=== PATIENT | male | born 1965 | race Caucasian/White ===

== ENCOUNTER 2022-04-12 08:53 | Outpatient (CLI) | payer OTHER, SELFPAY ==
[2022-04-12 14:58] LABS: Hemoglobin A1C* 8.74 % (0-5.6)
[2022-04-12 14:59] LABS: Albumin* 4.6 g/dL (3.3-5.0); Chloride* 102 mmol/L (96-114); Sodium* 138 mmol/L (135-149)
[2022-04-12 15:01] LABS: Bilirubin Total* 0.6 mg/dL (0.1-1.5); Carbon Dioxide* 25 mmol/L (20-32); Cholesterol* 156 mg/dL (90-199); Creatinine* 0.9 mg/dL (0.5-1.5); Estimated Glomerular Filt Rate 100 ml/min; Total Protein* 7.1 g/dL (6.0-8.3)
[2022-04-12 15:02] LABS: Alanine Aminotransferase* 30 U/L (4-50); Alkaline Phosphatase* 76 U/L (40-150); Aspartate Amino Transferase* 24 U/L (12-35); Blood Urea Nitrogen* 16 mg/dL (7-30); Calcium* 9.4 mg/dL (8.4-10.6); Glucose* 171 mg/dL (60-115); HDL Cholesterol* 37 mg/dL (>=40); LDL Cholesterol Calculated 85 mg/dL (<100); Triglycerides* 172 mg/dL (40-149)
[2022-04-12 15:13] LABS: Creatinine Urine 185.5 mg/dL
[2022-04-12 17:09] LABS: Microalbumin Creatinine Ratio 40 mg/g (0-30); Microalbumin Urine 8 mg/dL
== END 2022-04-12 08:54 | disposition home or self-care (01) ==
PROVIDERS: PCP Nurse Practitioner Family; Visit Provider Nurse Practitioner Family
DX: E11.9 Type 2 diabetes mellitus without complications (principal); E78.5 Hyperlipidemia, unspecified; E66.9 Obesity, unspecified; I10 Essential (primary) hypertension
CPT/HCPCS: 80053; 80061; 82043; 82570; 83036

== ENCOUNTER 2023-02-19 08:41 | Outpatient (CLI) | payer BC, SELFPAY | END 2023-02-19 08:42 | disposition home or self-care (01) | PROVIDERS: PCP Nurse Practitioner Family; Visit Provider Nurse Practitioner Family | DX: E66.9 Obesity, unspecified (principal); I10 Essential (primary) hypertension; E11.9 Type 2 diabetes mellitus without complications; E78.5 Hyperlipidemia, unspecified; Z12.5 Encounter for screening for malignant neoplasm of prostate | CPT/HCPCS: 80053; 80061; 82043; 82570; 84153; 84443 ==

== ENCOUNTER 2023-04-05 12:03 | Outpatient (CLI) | payer BC, SELFPAY | END 2023-04-05 12:04 | disposition home or self-care (01) | PROVIDERS: PCP Nurse Practitioner Family; Visit Provider Nurse Practitioner Family | DX: E11.9 Type 2 diabetes mellitus without complications (principal); R35.0 Frequency of micturition | CPT/HCPCS: 80048; 81015; 85025; 87086 ==

== ENCOUNTER 2023-04-16 12:45 | Outpatient (CLI) | payer BC, SELFPAY ==
--- NOTE | 2023-04-16 13:00 | CRLHL7_ITS ---
For Patients: As a result of the Century Cures Act, medical imaging exams and procedure reports are released immediately into your electronic medical record. You may view this report before your referring provider. If you have questions, please contact your health care provider. Indication: BILATERAL FLANK PAIN, MICROCYTIC HEMATURIA Technique: CT Abdomen/Pelvis WITHOUT Please note that all CT scans at this facility use dose modulation, iterative reconstruction, and/or weight-based dosing when appropriate to reduce radiation dose to as low as reasonably achievable. Comparison: None Findings: 6.3 millimeter nodule left lower lobe. No pleural effusion. No free intraperitoneal air. Noncontrast enhanced liver is unremarkable. The gallbladder is incompletely distended. No biliary duct dilation. Normal spleen and pancreas. Normal adrenal glands. The bladder is normal. Normal left ureter. Left kidney normal. Also normal right kidney and right ureter. No bowel obstruction. No inflammatory changes. Appendix is normal. No adenopathy. Atherosclerotic disease. Degenerative disc disease and facet degeneration. No vertebral body compression fracture. Impression: No renal, ureteral or bladder stone. Left lower lobe pulmonary nodule measuring 6.[address] chest recommended 1 year. Please note that all CT scans at this facility use dose modulation, iterative reconstruction, and/or weight-based dosing when appropriate to reduce radiation dose to as low as reasonably achievable. Dictated by Jonathon Mckinley MD @ 04/17/2023 11:37:14 AM (Electronically Signed)
== END 2023-04-16 12:46 | disposition home or self-care (01) ==
PROVIDERS: PCP Nurse Practitioner Family; Visit Provider Nurse Practitioner Family
DX: R10.9 Unspecified abdominal pain (principal); R31.9 Hematuria, unspecified; R91.1 Solitary pulmonary nodule
CPT/HCPCS: 74176

== ENCOUNTER 2023-12-24 08:10 | Outpatient (CLI) | payer OTHER, SELFPAY ==
--- OUTSIDE RECORDS SUMMARY | 2023-12-28 09:24 | XMS_ITS ---
Author Organization [facility] Address [address] [place] [address] Care Team Providers Care Siding Coreboard Inspector Name Role Phone Unavailable Unavailable Unavailable Surgery Details Not on file Complications Check Surgery Details section. Procedure Estimated Blood Loss Check Surgery Details section. Procedure Findings Check Surgery Details section. Procedure Specimens Taken Check Surgery Details section.
--- OUTSIDE RECORDS SUMMARY | 2023-12-28 09:24 | XMS_ITS | Referral Summary ---
Author Organization [facility] Address [address] [place] [address] Care Team Providers Care Motor Vehicle Or Caravan Salesperson Name Role Phone Elsewhere, Pcp Primary Care Provider Unavailabl e Source Comments Patient records contain information from all sites at [facility]. For routine questions regarding patient records, call [phone] during business hours, M-F 8:00 AM - 5:00 PM Central Time. Record requests for emergency care only can be directed to [phone] at any time.[facility] Encounters Date Type Department Care Team Description 11/19/2023 Clinical Communication Department of Orthopedic Surgery in [address] [phone] Vadim Redmond M.D. Surgical Listing 11/19/2023 1:03 PM CDT - 11/19/2023 11:59 PM CDT Hospital Encounter Department of Radiology in [address] [phone] Giovanna Molina APRN, C.N.P., D.N.P. Pain Shoulder Right Discharge Disposition: Home or Self Care 11/19/2023 1:03 PM CDT - 11/19/2023 11:59 PM CDT Hospital Encounter Department of Radiology in [address] [phone] Giovanna Molina APRN, C.N.P., D.N.P. Pain Knee Left Discharge Disposition: Home or Self Care 11/19/2023 1:00 PM CDT Comprehensive Visit Department of Orthopedic Surgery in [address] [place] [phone] Giovanna Molina APRN, C.N.P., D.N.P. Pain Knee Left (Primary Dx); Pain Shoulder Right Discharge Disposition: Home or Self Care from Last 3 Months Allergies No known active allergies Medications Medication Sig Dispensed Refills Start Date End Date Status multivitamin capsule Take by mouth daily. 05/28/2013 Active amLODIPine (NORVASC) 10 mg tablet Take ONE a day for blood pressure 04/09/2020 Active aspirin 81 mg chewable tablet Chew 1 tablet. Active atorvastatin (LIPITOR) 10 mg tablet Take 10 mg by mouth. 04/09/2020 Active hydroCHLOROthiazide (HYDRODIURIL) 25 mg tablet Take 25 mg by mouth. 04/09/2020 Active metFORMIN (GLUCOPHAGE) 1,000 mg tablet Take 1,000 mg by mouth 2 (two) times a day. 10/03/2020 Active losartan (COZAAR) 100 mg tablet Take 1 tablet by mouth daily. 04/17/2021 Active chlorthalidone (HYGROTON) 25 mg tablet 05/19/2021 Active Dexcom G6 Prefitter Doors See Admin Instructions. 02/20/2023 Active Dexcom G6 Sensor device See Admin Instructions. 05/01/2023 Active Dexcom G6 Transmitter device See Admin Instructions. 02/20/2023 Active insulin aspart U-100 (NovoLOG FlexPen) 100 unit/mL (3 mL) injection Inject 12 Units under the skin 3 (three) times a day with meals. 05/02/2023 Active Lantus Solostar U-100 Insulin 100 unit/mL (3 mL) injection Inject under the skin at bedtime. 04/18/2023 Active blood sugar diagnostic strips by other route as needed. 04/13/2022 Active UNABLE TO FIND by other route. Blood-Glucose Meter (Accu-Chek Staci Plus Meter) [facility] 04/13/2022 Active UNABLE TO FIND by other route. Needle (Disp) 23 Gauge (Bd Regular Bevel Spurger) 23 gauge x 3/4 needle 04/05/2023 Active semaglutide (OZEMPIC) 1 mg/dose (4 mg/3 mL) injectionIndications:D iabetes Mellitus Type 2 Without Complication (HCC) Inject 1 mg under the skin every 7 (seven) days. 3 mL 11 09/02/2023 Active semaglutide (Ozempic) 0.25 mg or 0.5 mg (2 mg/3 mL) injectionIndications:D iabetes Mellitus Type 2 Without Complication (HCC) Inject 0.25 mg under the skin every 7 (seven) days for 30 days, THEN 0.5 mg every 7 (seven) days. 3 mL 3 09/02/2023 Active Active Problems Problem Noted Date Diagnosed Date Primary Osteoarthritis Knee Left 11/19/2023 Pain Shoulder Right 11/19/2023 Morbid Obesity Body Mass Ind ex Greater Than Or Equal To 40 Adult 07/12/2015 Overview (09/04/2016): Morbid Obesity Body Mass Index (BMI) >40 Adult Hypertension 05/28/2013 Overview (09/04/2016): Hypertension Essential (401.9) Immunizations Name Administration Dates Next Due Tdap 07/28/2014,09/25/2005 Social History Tobacco Use Types Packs/Day Years Used Date Smoking Tobacco: Never Passive Smoke Exposure: Never Smokeless Tobacco: Never Tobacco Cessation:Counseling Given: Not Answered [facility] [employer] Answer Date Recorded In the past 12 months has th e Advisor Client Match, gas, oil, or water [facility] threatened to shut off services in your home? No 11/15/2023 Exercise Vital Sign Answer Date Recorde d On average, how many days pe r week do you engage in moderate to strenuous exercise (like a brisk walk)? 1 day 11/15/2023 On average, how many minutes do you engage in exercise at this level? 20 min 11/15/2023 Hunger Vital Sign Answer Date Recorded Within the past 12 months, y ou worried that your food would run out before you got the money to buy more. Never true 11/15/19 24 Within the past 12 months, t he food you bought just didn't last and you didn't have money to get more. Never true 11/15/2023 PRAPARE - Transportation Answer Date Re corded In the past 12 months, has l ack of transportation kept you from medical appointments or from getting medications? No 05/2023 In the past 12 months, has l ack of transportation kept you from meetings, work, or from getting things needed for daily living? No 11/15/2023 Nutrition Answer Date Recorded On average, how many serving s of fruits and vegetables do you eat per day (serving size is equal to 1 cup or approximately the size of a tennis ball)? 3-5 11/15/2023 Dental Answer Date Recorded Dental: Regular Dentist Yes 11/15/19 Employment Answer Date Recorded Employment status Employed and actively working without restrictions 11/15/2023 Housing Stability Answer Date Recorded What is your living situation today? I have a [facility] place to live 11/15/2023 Sex and Gender Information Value Date Recorded Sex Assigned at Male 11/15/2023 10:21 AM CDT Gender Identity Male 11/15/2023 10:21 AM CDT Sexual Orientation Straight 11/15/2023 10 :21 AM CDT Last Filed Vital Signs Vital Sign Reading Time Taken Comments Blood Pressure 144/81 05/13/2023 1:22 PM [employer] Pulse 73 05/13/2023 1:22 PM [employer] Temperature - - Respiratory Rate 20 06/29/2021 9:43 AM CDT Oxygen Saturation 94% 06/29/2021 1:45 PM CDT Inhaled Oxygen Concentration - - Weight 118 kg (259 lb 4.2 oz) 05/13/2023 1:22 PM [employer] Height 176.4 cm (5' 9.45) 05/14/2023 10:55 AM [facility] Body Mass Index 37.79 05/13/2023 1:22 PM [employer] Plan of Treatment Upcoming Encounters Date Type Department Care Team (Late st Contact Info) Description 04/29/2024 Hospital Encounter Outpatient Procedure Center in [address] [phone] Vadim Redmond M.D. [address] [place] [phone] 05/04/2024 4:00 PM [employer] Comprehensive Visit Department of Rehabilitation Services in [address] [phone] Giovanna Molina APRN, C.N.P., D.N.P. [address] [place] [phone] Jolly Henriquez P.T. [phone] [place] [phone] 06/10/2024 Hospital Encounter Outpatient Procedure Center in [place], [place] [address] [place] [phone] Vadim Redmond M.D. [address] [place] [phone] Scheduled Procedures Name Priority Associated Diagnoses Date/Ti me ROBOTIC-ASSISTED KNEE TOTAL ARTHROPLASTY Primary Osteoarthritis Knee Left ARTHROPLASTY TOTAL REVERSE SHOULDER Pain Shoulder Right Procedures Procedure Name Priority Date/Time Associated Diagnosis Comments DX KNEE LEFT 3 VIEWS RAD - Routine (most inpatients and all outpatients) 11/19/2023 1:24 PM CDT Pain Knee Left DX SHOULDER RIGHT 2+ VIEWS RAD - Routine (most inpatients and all outpatients) 11/19/2023 1:23 PM CDT Pain Shoulder Right HI ARTHCS ASP/INJ MJR JT WO US Routine 11/19/2023 1:00 PM CDT Pain Shoulder Right BASIC METABOLIC PANEL, S/P STAT 06/29/2021 10:00 AM CDT LIPID PANEL, S Routine 08/02/2015 8:33 AM CDT from Last 3 Months or Most Recently Relevant to Health Maintenance Results * DX Knee Left 3 Views (11/19/2023 1:24 PM CDT) Anatomical Region Laterality Modality Lower Extremity, Knee, Muscu loskeletal RST LOS, Musculoskeletal ARZ LOS, Muskuloskeletal FLA LOS Left Digit al Radiography Impressions 11/19/2023 2:11 PM CDT Comparison 02/23/2021. Progressed severe medial compartment predominant tricompartmental left knee osteoarthritis. Small left knee joint effusion. Alignment normal. No acute fracture. Narrative 11/19/2023 2:11 PM CDT EXAM: DX KNEE LEFT 3 VIEWS Procedure Note Neftali Martin M.D. - 11/19/2023 EXAM: DX KNEE LEFT 3 VIEWS IMPRESSION: Comparison 02/23/2021. Progressed severe medial compartment predominant tricompartmental leftknee osteoarthritis. Small left knee joint effusion. Alignment normal. Noacute fracture. Giovanna Molina APRN, C.N.P., D.N.P. [facility] PROCED[facility] * DX Shoulder Right 2+ Views (11/19/2023 1:23 PM CDT) Anatomical Region Laterality Modality Upper Extremity, Shoulder, M usculoskeletal RST LOS, Musculoskeletal ARZ LOS, Muskuloskeletal FLA LOS Right Digit al Radiography Impressions 11/19/2023 2:11 PM CDT No acute osseous abnormality. High riding humeral head suggests chronic rotator cuff insufficiency. Moderate acromioclavicular and glenohumeral degenerative change. Narrative 11/19/2023 2:11 PM CDT EXAM: DX SHOULDER RIGHT 2+ VIEWS Procedure Note Mariano Harris M.D. - 11/19/2023 EXAM: DX SHOULDER RIGHT 2+ VIEWS IMPRESSION: No acute osseous abnormality. High riding humeral head suggests chronicrotator cuff insufficiency. Moderate acromioclavicular and glenohumeraldegenerative change. Giovanna Molina APRN, C.N.P., D.N.P. [facility] PROCED[facility] * HI ARTHCS ASP/INJ MJR JT WO US (11/19/2023 1:00 PM CDT) Narrative MMODAL - 11/19/2023 1:00 PM CDT Giovanna Molina APRN, C.N.P., D.N.P. ? 11/19/2023 ??2:41 PM Shoulder site - R glenohumeral : injection only Performed by: Giovanna Molina APRN, C.N.P., DyanN.P. Authorized by: Giovanna Molina APRN, C.N.Samuel, De.N.P. ?? PROCEDURE DETAILS Indications: right shoulder pain Procedure Location shoulder Shoulder site: R glenohumeral Site prep: patient was prepped and draped in usual sterile fashion ?? Patient position: seated Procedural approach: posterior Procedure performed: injection only Needle gauge: 22 G, length: 2 in Procedural Medication The following medications were administered at the target site(s) Local anesthetic: 5 mL lidocaine 10 mg/mL (1 %); 3 mL lidocaine 10 mg/mL (1 %) Corticosteroid: 40 mg triamcinolone acetonide 40 mg/mL CONSENT Consent obtained: written (Risks, benefits and alternatives were discussed and a written Informed Consent was obtained. Please see Informed Consent form for further details.) PRE-PROCEDURE DETAILS Procedure purpose: therapeutic and diagnostic Indications: right shoulder pain Site preparation: povidone-iodine SEDATION / ANESTHESIA Anesthesia method: none POST-PROCEDURE DETAILS Procedure completed successfully: yes Complications: no apparent complications ?? Post-procedure instructions: avoid strenuous activity for 5 days Discharge instructions: dressing care and follow-up with ordering provider Ernie Ramsey APRN.N.Samuel, De.N.P. PROCEDU RE/MINOR SURGICAL ORDERABLES MMODAL NA * (ABNORMAL) Basic Metabolic Panel (06/29/2021 10:00 AM CDT) Potassium, P 3.9 3.6 - 5.2 mmol/L 06/29/2021 10:25 AM CDT [facility] Sodium, P 136 135 - 145 mmol/L 06/29/2021 10:25 AM CDT [facility] Chloride, P 101 98 - 107 mmol/L 06/29/2021 10:25 AM CDT [facility] Bicarbonate, P 22 22 - 29 mmol/L 06/29/2021 10:25 AM CDT [facility] Anion Gap, P 13 7 - 15 06/29/2021 10:25 AM CDT [facility] BUN (Blood Urea Nitrogen), P 14 8 - 24 mg/dL 06/29/2021 10:25 AM CDT [facility] Creatinine 0.81 0.74 - 1.35 mg/dL 06/29/2021 10:25 AM CDT CNFL eGFR-Black/Afri can British >90 >=60 mL/min/BSA 06/29/2021 10:25 AM CDT [facility] Comment: ----ADDITIONAL INFORMATION---- Estimated GFR calculated using the 2009 CKD_EPI creatinine equation. eGFR Non-Black/Afric an British >90 >=60 mL/min/BSA 06/29/2021 10:25 AM CDT [facility] Comment: ----ADDITIONAL INFORMATION---- Estimated GFR calculated using the 2009 CKD_EPI creatinine equation. Calcium, Total, P 9.8 8.6 - 10.0 mg/dL 06/29/2021 10:25 AM CDT [facility] Glucose, P 169(H) 70 - 140 mg/dL 06/29/2021 10:25 AM CDT [facility] Blood (Blood, Venous) 06/29/2021 10:00 AM CDT 06/29/2021 10:02 AM CDT Lily Magallanes APRNNVasquez LAB BLO OD ADD-ON [facility] [address] [place] [address], [place] [address] * (ABNORMAL) Lipid Panel (08/02/2015 8:33 AM CDT) Cholesterol, Total 209(H) <=199 MGDL POWERCHART Comment: 2014 National Lipid Association recommendations for Total Cholesterol in adults ages 18 and up: Desirable <200 mg/dL Borderline high 200-239 mg/dL High 240 mg/dL 2014 National Lipid Association recommendations for Total Cholesterol in children ages 2 to 17. Acceptable <170 mg/dL Borderline High 170-199 mg/dL High 200 mg/dL HX HDL 33(L) >=40 MGDL POWERCHART Comment: 2014 National Lipid Association recommendations for HDL-C in adults ages 18 and up: Low <40 mg/dL (Men) Low <50 mg/dL (Women) 2014 National Lipid Association recommendations for HDL-C in children ages 2 to 17. Low <40 mg/dL Borderline Low 40-45 mg/dL Acceptable >45 mg/dL Triglycerides 293(H) <=149 MGDL POWERCHART Comment: 2014 National Lipid Association recommendations for Triglycerides in adults ages 18 and up: Normal <150 mg/dL Borderline High 150-199 mg/dL High 200-499 mg/dL Very High 500 mg/dL 2014 National Lipid Association recommendations for Triglycerides in children ages 2 to 9. Acceptable <75 mg/dL Borderline High 75-99 mg/dL High 100 mg/dL 2014 National Lipid Association recommendations for Triglycerides in children ages 10 to 17. Acceptable <90 mg/dL Borderline High 90-129 mg/dL High 130 mg/dL Trigs >400mg/dL: Triglycerides >400 mg/dL. Calculated LDL cholesterol is not valid. Non-HDL cholesterol may be used for risk assessment when triglycerides are >400mg/dL. Calculated LDL 117 <=129 MGDL POWERCHART Comment: 2014 National Lipid Association recommendations for LDL-C in adults ages 18 and up: Desirable <100 mg/dL Above desirable 100-129 mg/dL Borderline high 130-159 mg/dL High 160-189 mg/dL Very High 190 mg/dL 2014 National Lipid Association recommendations for LDL-C in children ages 2 to 17. Acceptable <110 mg/dL Borderline High 110-129mg/dL High 130 mg/dL LDL-C >190mg/dL: The markedly elevated LDL level is suggestive of a genetic condition such as familial hypercholesterolemia(FH) or familial defective apolipoprotein B-100 (FDB). Molecular genetic testing for FH and FDB is available through [facility]: FH/ADH Genetic Reflex Panel (test ADHP). Acquired (non-genetic) causes of markedly increased LDL cholesterol include cholestatic liver disease due to the presence of LpX. If a genetic form of hypercholesterolemia is suspected, family studies including biochemical testing for lipids (total cholesterol,triglycerides, LDL cholesterol and HDL cholesterol) are recommended. ??Please contact the laboratory at or the on-line test catalog at [employer] for information about how to order these tests or to speak with a genetic counselor. Further interpretation would require clinical information. Total Cholesterol/HDL Ratio 6 POWERCHART Blood 08/02/2015 8:33 AM CDT Miguel A Flores M.D. LAB BLOOD ADD-ON POWERCHART from Last 3 Months or Most Recently Relevant to Health Maintenance Care Teams Motor Vehicle Or Caravan Salesperson Relationship Specialty Start Date End Date Elsewhere, Pcp PCP - General 10/13/18
--- OUTSIDE RECORDS SUMMARY | 2023-12-28 09:24 | XMS_ITS | Clinical Summary ---
Author Organization [facility] Address [address] [place] [address] Care Team Providers Care Reinforcing Steel Erector Name Role Phone Elsewhere, Pcp Primary Care Provider Unavailabl e Source Comments Patient records contain information from all sites at [facility]. For routine questions regarding patient records, call [phone] during business hours, M-F 8:00 AM - 5:00 PM Central Time. Record requests for emergency care only can be directed to [phone] at any time.[facility] Allergies No known active allergies Medications Medication [...] 25 mg tablet 05/19/2021 Active Dexcom G6 [employer] Finance Manager See Admin Instructions. 02/20/2023 Active Dexcom G6 [...] route. Blood-Glucose Meter (Accu-Chek Staci Plus Meter) mis 04/13/2022 Active UNABLE TO FIND by other route. Needle (Disp) 23 Gauge (Bd Regular Bevel [place]) 23 gauge x 3/4 needle 04/05/2023 Active [...] Hypertension 05/28/2013 Overview (09/04/2016): Hypertension Essential (401.9) Encounters Date Type Department Care Team Description 11/19/2023 1:03 PM CDT - 11/19/2023 11:59 PM CDT Hospital Encounter Department of Radiology in [address] [phone] Giovanna Molina APRN, C.N.P., D.N.P. Pain Shoulder Right Discharge Disposition: Home or Self Care 11/19/2023 1:03 PM CDT - 11/19/2023 11:59 PM CDT Hospital Encounter Department of Radiology in [address] [phone] Giovanna Molina APRN, C.N.PJuan C, D.N.P. Pain Knee Left Discharge Disposition: Home or Self Care 11/19/2023 1:00 PM CDT Comprehensive Visit Department of Orthopedic Surgery in [address] [phone] Giovanna Molina APRN, C.N.Tita., D.N.P. Pain Knee Left (Primary Dx); Pain Shoulder Right Discharge Disposition: Home or Self Care 11/19/2023 Clinical Communication Department of Orthopedic Surgery in [address] [phone] Vadim Redmond M.D. Surgical Listing from Last 3 Months Immunizations Name Administration Dates Next Due Tdap 07/28/2014,09/25/2005 Family History Medical History Relation Name Comments Coronary artery disease Father Diabetes Father Hypertension Mother Relation Name Status Comments Father Mother Social History Tobacco Use Types Packs/Day Years Used Date Smoking Tobacco: Never Passive Smoke Exposure: Never Smokeless Tobacco: Never Tobacco Cessation:Counseling Given: Not Answered [facility] Utilities Answer Date Recorded In the past 12 months has [employer], gas, oil, or water [employer] threatened to shut off services in your [...] your living situation today? I have a [facility] place to live 11/15/2023 Sex and Gender Information Value Date Recorded Sex Assigned at Male 11/15/2023 10:21 AM CDT Gender Identity Male 11/15/2023 10:21 AM CDT Sexual Orientation Straight 11/15/2023 10 :21 AM CDT Last Filed Vital Signs Vital Sign Reading Time Taken Comments Blood Pressure 144/81 05/13/2023 1:22 PM [facility] Pulse 73 05/13/2023 1:22 PM [facility] Temperature - - Respiratory Rate 20 06/29/2021 9:43 AM CDT Oxygen Saturation 94% 06/29/2021 1:45 PM CDT Inhaled Oxygen Concentration - - Weight 118 kg (259 lb 4.2 oz) 05/13/2023 1:22 PM [facility] Height 176.4 cm (5' 9.45) 05/14/2023 10:[address] Body Mass Index 37.79 05/13/2023 1:22 PM [facility]AG[facility]AN Plan of Treatment Upcoming Encounters Date Type Department Care Team (Late st Contact Info) Description 04/29/2024 Hospital Encounter Outpatient Procedure Center in [address] [phone] Vadim Redmond M.D. [address] [place] [phone] 05/04/2024 4:00 PM [facility]AG[facility]AN Comprehensive Visit Department of Rehabilitation Services in [address] [phone] Giovanna Molina APRN, C.N.P., D.N.P. [address] [place] [phone] Jolly Henriquez P.T. [address] [place] [phone] 06/10/2024 Hospital Encounter Outpatient Procedure Center in [place], [place] [address] [place] [phone] Vadim Redmond M.D. [address] [place] [phone] Scheduled Procedures Name Priority Associated Diagnoses Date/Ti me ROBOTIC-ASSISTED KNEE TOTAL ARTHROPLASTY Primary Osteoarthritis Knee Left ARTHROPLASTY TOTAL REVERSE SHOULDER Pain Shoulder Right Health Maintenance Due Date Last Done Comments CT Colonography 1964 Cologuard 1964 FIT 1965 HIV Screening 1965 Hepatitis C Screening 1964 Hepatitis B Vaccines (1 of 3 - 19+ 3-dose series) 09/01/1983 Zoster Vaccines (1 of 2) 2014 Creatinine Level (Kidney Function Test) 06/29/2022 06/29/2021, 05/15/2021, 03/30/2020, Additional history exists Potassium Level 06/29/2022 06/29/2021, 04/17, 03/30/2020, Additional history exists Sodium Level 06/29/2022 06/29/2021, 04/17, 03/30/2020, Additional history exists Depression Screening (Annual PHQ-2) 04/15/2023 Office Visit for Blood Pressure Check / Re-check 08/12/2023 05/13/2023 COVID-19 Vaccine ( season) 2023 04/26/2021, 08/05/2020, 07/15/2020 Influenza Vaccine (#1) 2024 Fasting Glucose for Diabetes Screening 06/29/2024 06/29/2021, 05/15/2021, 09/07/2020, Additional history exists DTaP,Tdap,and Td Vaccines (3 - Td or Tdap) 07/28/2024 07/28/2014, 09/25/2005 Lipid (Cholesterol) Screening 03/30/2025 03/30/2020, 12/19/2018, 04/18/2018, Additional history exists Colonoscopy 08/10/2025 08/11/2015 Colorectal Cancer Screening 08/10/2025 Pneumococcal vaccine (0-64 years) Aged Out No longer eligible based on patient's age to complete this topic Procedures Procedure Name Priority Date/Time Associated Diagnosis Comments DX KNEE LEFT 3 VIEWS RAD - Routine (most inpatients and all outpatients) 11/19/2023 1:24 PM CDT Pain Knee Left DX SHOULDER RIGHT 2+ VIEWS RAD - Routine (most inpatients and all outpatients) 11/19/2023 1:23 PM CDT Pain Shoulder Right WI ARTHCS ASP/INJ MJR JT WO US Routine [...] Noacute fracture. Giovanna Molina APRN, C.N.P., D.N.P. [facility]ED[facility] * DX Shoulder [...] glenohumeraldegenerative change. Giovanna Molina APRN, C.N.P., D.N.P. [facility]ED[facility] * WI ARTHCS ASP/INJ MJR JT WO US (11/19/2023 1:00 PM CDT) Narrative MMODAL - 11/19/2023 1:00 PM CDT Giovanna Molina APRN, C.N.P., D.N.P. ? 11/19/2023 ??2:41 PM Shoulder site - R glenohumeral : injection only Performed by: Giovanna Molina APRN, C.N.P., D.N.P. Authorized by: Giovanna Molina APRN, C.N.P., D.N.P. ?? PROCEDURE DETAILS Indications: right shoulder pain [...] dressing care and follow-up with ordering provider Giovanna Molina APRN, C.N.P., D.N.P. PROCEDU RE/MINOR SURGICAL ORDERABLES MMODAL NA * [...] 06/29/2021 10:25 AM CDT CNFL eGFR-Black/Afri can Tongan >90 >=60 mL/min/BSA 06/29/2021 10:25 AM CDT CNFL Comment: ----ADDITIONAL INFORMATION---- Estimated GFR calculated using the 2009 CKD_EPI creatinine equation. eGFR Non-Black/Afric an Tongan >90 >=60 mL/min/BSA 06/29/2021 10:25 AM CDT CNFL Comment: ----ADDITIONAL INFORMATION---- Estimated GFR calculated using the 2009 CKD_EPI creatinine equation. Calcium, Total, P 9.8 8.6 - 10.0 mg/dL 06/29/2021 10:25 AM CDT CNFL Glucose, P 169(H) 70 - 140 mg/dL 06/29/2021 10:25 AM CDT CNFL Blood (Blood, Venous) 06/29/2021 10:00 AM CDT 06/29/2021 10:02 AM CDT Lily Magallanes APRNNVasquez LAB BLO OD ADD-ON [facility] [place] [address], [facility] CNFL [facility] [place] [address] * (ABNORMAL) Lipid Panel (08/02/2015 8:33 AM [...] for FH and FDB is available through [facility] [employer]: FH/ADH Genetic Reflex Panel (test ADHP). Acquired (non-genetic) causes of markedly increased LDL cholesterol include cholestatic liver disease due to the presence of LpX. If a genetic form of hypercholesterolemia is suspected, family studies including biochemical testing for lipids (total cholesterol,triglycerides, LDL cholesterol and HDL cholesterol) are recommended. ??Please contact the laboratory at or the on-line test catalog at [facility] for information about how to order these tests or to speak with a genetic counselor. Further interpretation would require clinical information. Total Cholesterol/HDL Ratio 6 POWERCHART Blood 08/02/2015 8:33 AM CDT Miguel A Flores M.D. LAB BLOOD ADD-ON POWERCHART from Last 3 Months or Most Recently Relevant to Health Maintenance Care Teams Reinforcing Steel Erector Relationship Specialty Start Date End Date Elsewhere, Pcp PCP - General 10/13/18
--- OUTSIDE RECORDS SUMMARY | 2023-12-28 09:24 | XMS_ITS | Clinical Summary ---
Author Organization [facility] Address [address] [place] [address] Care Team Providers Care Insurance Underwriting Assistant Name Role Phone Andrae Mckeon MD Primary Care Provider [phone] Source Comments You are receiving this document as you are listed as the primary care provider,follow-up provider, or the patient has been referred to you for consultation.This is in compliance with the Medicare and[facility] Incentive [facility],which states Providers who transition their patient to another setting of careor provider of care or refers their patient to another provider of care shouldprovide summary care record for each transition of care or referral. [facility] Allergies No known active allergies Social History Tobacco Use Types Packs/Day Years Used Date Smoking Tobacco: Never Tobacco Cessation:Counseling Given: Not Answered Sex and Gender Information Value Date Recorded Sex Assigned at Not on file Gender Identity Not on file Sexual Orientation Not on file Last Filed Vital Signs Vital Sign Reading Time Taken Comments Blood Pressure - - Pulse - - Temperature - - Respiratory Rate - - Oxygen Saturation - - Inhaled Oxygen Concentration - - Weight 115.7 kg (255 lb) 10/02/2022 10:47 AM CDT Height 182.9 cm (6') 10/02/2022 10:47 AM CDT Body Mass Index 34.58 10/02/2022 10:47 AM CDT Plan of Treatment Health Maintenance Due Date Last Done Comments Colon Cancer Screening Plan Due 1965 Hep C Screening (Preventive Services) 1965 PSA Screening Discussion 1964 HIV Screening (Preventive Services) 1980 Adult Preventive Visit 1982 HepB (1) 09/01/1983 Cholesterol 09/01/1999 Zoster/Shingles (1 of 2) 2014 COVID-19 Vaccine (4 - 2022-2 4 season) 2023 04/26/2021, 08/05/2020, 07/15/2020 Influenza (#1) 2024 DTaP/Tdap/Td (3 - Tdap) 07/28/2024 07/29/19 15, 09/25/2005 HepA Aged Out No longer eligi ble based on patient's age to complete this topic Hib Aged Out No longer eligi ble based on patient's age to complete this topic IPV (Polio) Aged Out No longer eligi ble based on patient's age to complete this topic MCV4 Aged Out No longer eligi ble based on patient's age to complete this topic Pneumococcal Aged Out No longer eligi ble based on patient's age to complete this topic Care Teams Insurance Underwriting Assistant Relationship Specialty Start Date End Date Andrae Mckeon MD [address] [place] [address] PCP - General 07/17/10
--- OUTSIDE RECORDS SUMMARY | 2023-12-28 09:25 | XMS_ITS | Encounter Summary ---
Author Organization [facility] Address [address] [place] [address] Care Team Providers Care Candy Butcher Name Role Phone Elsewhere, Pcp Primary Care Provider Unavailabl e Reason for Referral * Specialty Diagnoses / Procedures Referred By Eduin t Referred To Contact Giovanna Molina APRN, C.N.P., D.N.P. [address] [place] [address] [facility] Region Referral ID Status Reason Start Date Expiration Date Visits Re quested Visits Authorized Scheduling Instructions Anticipated Surgery Date is April 29. If schedulers are having a hard time finding class availability and/or patient needs an insurance salesperson, call [phone] to assist with scheduling. * MRI/CAT/PET Scan (Routine) - Authorized Specialty Diagnoses / Procedures Referred By Contac t Referred To Contact Radiology Diagnoses Pain Knee Left Procedures CT Knee Left without IV Contrast Giovanna Molina APRN, C.N.P., D.N.P. [address] [place] [phone] [facility] Region Referral ID Status Reason Start Date Expiration Date V isits Requested Visits Authorized [id number] Authorized 11/19/2023 11/18/2024 1 1 * Physical Therapy (Routine) - Authorized Specialty Diagnoses / Procedures Referred By Contac t Referred To Contact Diagnoses Pain Knee Left Procedures PT Evaluate and treat Giovanna Molina APRN C.N.P., D.N.P. [address] [place] [phone] [facility] Region Referral ID Status Reason Start Date Expiration Date V isits Requested Visits Authorized [id number] Authorized 11/19/2023 11/18/2024 1 1 * Outpatient (Routine) - Authorized Specialty Diagnoses / Procedures Referred By Contac t Referred To Contact Anesthesiology Diagnoses Pain Knee Left Giovanna Molina APRN, C.N.P., D.N.P. [address] [place] [phone] [facility] Region Referral ID Status Reason Start Date Expiration Date V isits Requested Visits Authorized [id number] Authorized 11/19/2023 05/20/2025 1 1 * Outpatient (Routine) - Authorized Specialty Diagnoses / Procedures Referred By Contac t Referred To Contact Family Medicine Diagnoses Pain Knee Left Giovanna Molina APRN, C.N.P., D.N.P. [address] [place] [phone] [facility] Region Referral ID Status Reason Start Date Expiration Date V isits Requested Visits Authorized [id number] Authorized 11/19/2023 05/20/2025 1 1 * Outpatient (Routine) - Authorized Specialty Diagnoses / Procedures Referred By Contac t Referred To Contact Orthopedic Surgery Giovanna Molina APRN, C.N.P., D.N.P. [address] [place] [phone] [facility] Region Referral ID Status Reason Start Date Expiration Date V isits Requested Visits Authorized [id number] Authorized 11/19/2023 05/20/2025 1 1 * Outpatient (Routine) - Authorized Specialty Diagnoses / Procedures Referred By Contac t Referred To Contact Diagnoses Pain Shoulder Right Procedures epl-rzrf-usepzwqg-elbow arthrocentesis: R glenohumeral Giovanna Molina APRN, C.N.P., D.N.P. [address] [place] [address] [facility] Region Referral ID Status Reason Start Date Expiration Date V isits Requested Visits Authorized [id number] Authorized 11/19/2023 11/18/2024 1 1 * Outpatient (Routine) - Closed Specialty Diagnoses / Procedures Referred By Contac t Referred To Contact Diagnoses Pain Shoulder Right Procedures DX Shoulder Right 2+ Views Giovanna Molina APRN, C.N.P., D.N.P. [address] [place] [address] [facility] Region Referral ID Status Reason Start Date Expiration Date Visits Re quested Visits Authorized [id number] Closed 11/19/2023 11/18/2024 1 1 * Outpatient (Routine) - Closed Specialty Diagnoses / Procedures Referred By Contac t Referred To Contact Diagnoses Pain Knee Left Procedures DX Knee Left 3 Views Giovanna Molina APRN, C.N.P., D.N.P. [address] [place] [address] [facility] Region Referral ID Status Reason Start Date Expiration Date Visits Re quested Visits Authorized [id number] Closed 11/19/2023 11/18/2024 1 1 Reason for Visit * Reason Comments Pain Pain * Appointment Request (Routine) - Closed Specialty Diagnoses / Procedures Referred By Eduin vences Referred To Contact Orthopedic Surgery Referral ID Status Reason Start Date Expiration Date Visits Re quested Visits Authorized [id number] Closed 09/17/2023 09/16/2024 1 1 Encounter Details Date Type Department Care Team (Latest Contact Info) Description 11/19/2023 1:00 PM CDT Comprehensive Visit Department of Orthopedic Surgery in [address] [phone] Giovanna Molina APRN, C.N.P., D.N.P. [address] [place] [phone] Pain Knee Left (Primary Dx); Pain Shoulder Right Discharge Disposition: Home or Self Care Social History Tobacco Use Types Packs/Day Years Used Date Smoking Tobacco: Never Passive Smoke Exposure: Never Smokeless Tobacco: Never [employer] Utilities Answer Date Recorded In the past 12 months has [employer], gas, oil, or water [employer] threatened to shut off services in your [...] your living situation today? I have a [facility] place to live 11/15/2023 Sex and Gender Information Value Date Recorded Sex Assigned at Male 11/15/2023 10:21 AM CDT Gender Identity Male 11/15/2023 10:21 AM CDT Sexual Orientation Straight 11/15/2023 10 :21 AM CDT documented as of this encounter Progress Notes * Giovanna Molina APRN, C.N.P., D.N.P. - 11/19/2023 1:00 PM CDT Kd is a very pleasant 58-year-old who comes in today for evaluation of both his left knee and his right shoulder. He states that he has having more problems now with his shoulder than he is his left knee but continues to have chronic pain issues with both. In regard to his left knee he has had injections in the past that only gave him short-term relief he has been using ibuprofen and modifyinghis activity I also as well as using a knee brace. In regard to his right shoulder he states that his pain is getting so severe he is unable to move certain movements but also has difficulty with sleeping at night. He is insulin- dependent diabetic. He would like to consider treatment options but would like to be sure to do both surgeries within 1 calendar year. 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 Physical exam-left knee with effusion noted. Right shoulder with difficulty with raising it greaterthan 90?? flexion. Diagnostic studies x-ray of the left shoulder shows medial compartment [id number]-zt-[id number] articulation and right shoulder shows significant glenohumeral arthritis in the presence rotator cuff pathology. Pertinent medical history he has no personal history of blood clots or bleeding disorder nor any family history of that. He is an insulin-dependent type 2 diabetic. He has not a smoker. He has an elevated BMI. He has hypertension. 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 We discussed treatment options he would like to proceed with surgical intervention but wishes to wait until April. As we discussed we would 1st want to proceed with a left total knee arthroplasty we discussed risks and benefits of this surgery as well as preoperative and postoperative expectations. We will proceed with Adin robotic CT-guided left total knee arthroplasty. Afterwards following 6-7 weeks after his left knee we will proceed with a right reverse total shoulder arthroplasty. We again discussed therisks and the benefits of this surgery as well as preoperative and postoperative expectations. Given he is diabetic will increase his risk of infection as well as may require a anticoagulant postoperatively. We also discussed the risks of nerve damage anesthesia complications and chronic pain. He wishes to proceed. In the meantime as of right now his right shoulder is quite severe in pain we did discuss a corticosteroid injection of Kenalog however understanding this would increase his blood sugars and he may need to adjust his insulin accordingly. We would not want to proceed with this if itwere closer to his surgical date which he states to understand and would not repeat before surgery.At this time, after brief discussion, consent form was obtained, per sterile technique using a small amount of 1% lidocaine and 40 mg of Kenalog was injected into the glenohumeral joint space of his right shoulder without difficulty and patient tolerated the procedure well. He will let us know if he finds any issues or no improvement in his symptoms and he will monitor his blood sugars much closer and more frequent. Patient agrees and understands this plan and his questions were answered documented in this encounter Procedure Notes * Giovanna Molina APRN, C.N.P., D.N.P. - 11/19/2023 1:00 PM CDTAssociated Order(s): znl-asrf-byzipiru-elbow arthrocentesis: R glenohumeral Post-Procedure Diagnose(s): Pain Shoulder Right Shoulder site - R glenohumeral : injection only Performed by: Giovanna Molina APRN, C.N.P., D.N.P. Authorized by: Giovanna Molina APRN, C.N.P., D.N.P. PROCEDURE DETAILS Indications: right shoulder pain Procedure Location shoulder Shoulder site: R glenohumeral Site prep: patient was prepped and draped in usual sterile fashion Patient position: seated Procedural approach: posterior Procedure [...] completed successfully: yes Complications: no apparent complications Post-procedure instructions: avoid strenuous activity for 5 days Discharge instructions: dressing care and follow-up with ordering provider documented in this encounter Plan of Treatment Upcoming Encounters Date Type Department Care Team (Late st Contact Info) Description 04/29/2024 Hospital Encounter Outpatient Procedure Center in [place], [place] [address] [place] [address] Vadim Redmond M.D. [address] [place] [phone] 05/04/2024 4:00 PM SPORTS SPECIALIST Comprehensive Visit Department of Rehabilitation Services in [address] [phone] Giovanna Molina APRN, LilyNShanice., D.N.P. [address] [place] [phone] Jolly Henriquez P.T. [address] [place] [phone] 06/10/2024 Hospital Encounter Outpatient Procedure Center in [place], [place] [address] [place] [phone] Vadim Redmond M.D. [address] [place] [phone] Scheduled Orders Name Type Priority Associated Diagnoses Orde r Schedule CT Knee Left without IV Contrast Imaging RAD - Routine (most inpatients and all outpatients) Pain Knee Left Expected: 11/19/2023 (Approximate), Expires: 10/27/2024 Scheduled Procedures Name Priority Associated Diagnoses Date/Ti me ROBOTIC-ASSISTED KNEE TOTAL ARTHROPLASTY Primary Osteoarthritis Knee Left ARTHROPLASTY TOTAL REVERSE SHOULDER Pain Shoulder Right Scheduled Referrals Name Type Priority Associated Diagnoses Order Schedule Orthopedic Surgery Post Op (clinic) Outpatient Referral Routine 1 Occurrenc es starting 11/19/2023 until 02/27/2024 Primary Care - [facility]LL consult (clinic) Outpatient Referral Routine Pain Knee Left 1 Occurrences starting 11/19/2023 until 02/27/2024 Pre Operative Evaluation T[facility]RELL nurse consult (clinic) Outpatient Referral Routine Pain Knee Left 1 Occurrences starting 11/19/2023 until 02/18/2025 Patient Education - Total Joint (Hip or Knee) Replacement Education Visit (Clinic) Outpatient Referral Routine Pain Knee Left 1 Occurrences starting 11/19/2023 until 02/18/2025 documented as of this encounter Procedures Procedure Name Priority Date/Time Associated Diagnosis Comments LA ARTHCS ASP/INJ MJR JT WO US Routine 11/19/2023 1:00 PM CDT Pain Shoulder Right documented in this encounter Results * DX Knee Left 3 Views [...] knee joint effusion. Alignment normal. Noacute fracture. Lily Ramsey APRNNShanice., D.N.P. IMG TESFAYE GNOSTIC IMAGING PROCEDURES * DX Shoulder [...] cuff insufficiency. Moderate acromioclavicular and glenohumeraldegenerative change. Lily Ramsey APRNN.Samuel, De.N.P. IMG TESFAYE GNOSTIC IMAGING PROCEDURES * LA ARTHCS ASP/INJ MJR JT WO US (11/19/2023 1:00 PM CDT) Narrative MMODAL - 11/19/2023 1:00 PM CDT Giovanna Molina APRN, C.N.PJuan C, De.N.P. ? 11/19/2023 ??2:41 PM Shoulder site - R glenohumeral : injection only Performed by: Giovanna Molina APRN, Ernie.N.PJuan C, De.N.P. Authorized by: Giovanna Molina APRN, C.N.Samuel, De.N.P. [...] and follow-up with ordering provider Ernie Ramsey APRN.N.PJuan C, De.N.P. PROCEDU RE/MINOR SURGICAL ORDERABLES MMODAL NA documented in this encounter Visit Diagnoses Diagnosis Pain Knee Left- Primary Pain Shoulder Right Pain Knee Left Pain Shoulder Right documented in this encounter Administered Medications Inactive Administered Medications - up to 3 most recent administrations Medication Order MAR Action Action Date Dose Rate Site lidocaine 10 mg/mL (1 %) injection 3 mL (Xylocaine) 3 mL, injection, One-Time Injection, Starting on Sat11/19/23 at 1300, For 1 dose Given 11/19/2023 1:00 PM CDT 3 mL lidocaine 10 mg/mL (1 %) injection 5 mL (Xylocaine) 5 mL, injection, One-Time Injection, Starting on Sat11/19/23 at 1300, For 1 dose Given 11/19/2023 1:00 PM CDT 5 mL triamcinolone acetonide injection 40 mg (Kenalog-40) 40 mg, intra-articular, One-Time Injection, Starting on Sat11/19/23 at 1300, For 1 dose Given 11/19/2023 1:00 PM CDT 40 mg documented in this encounter Care Teams Candy Butcher Relationship Specialty Start Date End Date Elsewhere, Pcp PCP - General 10/13/18 documented as of this encounter
--- OUTSIDE RECORDS SUMMARY | 2023-12-28 09:25 | XMS_ITS | Encounter Summary ---
Author Organization [facility] Address [address] [place] [address] Care Team Providers Care Senior Enterprise Architect Name Role Phone Elsewhere, Pcp Primary Care Provider Unavailabl e Reason for Referral * Outpatient (Routine) - Closed Specialty Diagnoses / Procedures Referred By Eduin vences Referred To Contact Diagnoses Pain Shoulder Right Procedures DX Shoulder Right 2+ Views Giovanna Molina APRN, C.N.P., D.N.P. [address] [place] [phone] [facility] Region Referral ID Status Reason Start Date Expiration Date Visits Re quested Visits Authorized [id number] Closed 11/19/2023 11/18/2024 1 1 Reason for Visit * Outpatient (Routine) - Closed Specialty Diagnoses / Procedures Referred By Eduin vences Referred To Contact Diagnoses Pain Shoulder Right Procedures DX Shoulder Right 2+ Views Giovanna Molina APRN, C.N.P., D.N.P. [address] [place] [phone] [facility] Region Referral ID Status Reason Start Date Expiration Date Visits Re quested Visits Authorized [id number] Closed 11/19/2023 11/18/2024 1 1 Encounter Details Date Type Department Care Team (Latest Contact Info) Description 11/19/2023 1:03 PM CDT - 11/19/2023 11:59 PM CDT Hospital Encounter Department of Radiology in [address] [place] [phone] Giovanna Molina APRN, C.N.P., D.N.P. [address] [facility] [place] [phone] Pain Shoulder Right Discharge Disposition: Home or Self Care Social History Tobacco Use Types Packs/Day Years Used Date Smoking Tobacco: Never Passive Smoke Exposure: Never Smokeless Tobacco: Never [facility] Utilities Answer Date Recorded In the past 12 months has th e electric, gas, oil, or water company threatened to shut off services in your [...] money to buy more. Never true 11/15/19 Within the past 12 months, t he [...] your living situation today? [facility] live 11/15/2023 Sex and Gender Information Value Date Recorded Sex Assigned at Male 11/15/2023 10:21 AM CDT Gender Identity Male 11/15/2023 10:21 AM CDT Sexual Orientation Straight 11/15/2023 10 :21 AM CDT documented as of this encounter Medications at Time of Discharge Medication Sig Dispensed Refills Start Date End Date amLODIPine (NORVASC) 10 mg tablet Take ONE a day for blood pressure 04/09/2020 aspirin 81 mg chewable tablet Chew 1 tablet. atorvastatin (LIPITOR) 10 mg tablet Take 10 mg by mouth. 04/09/2020 blood sugar diagnostic strips by other route as needed. 04/13/2022 chlorthalidone (HYGROTON) 25 mg tablet 05/19/2021 Dexcom G6 Corporate Trainer See Admin Instructions. 02/20/2023 Dexcom G6 Sensor device See Admin Instructions. 05/01/2023 Dexcom G6 Transmitter device See Admin Instructions. 02/20/2023 hydroCHLOROthiazide (HYDRODIURIL) 25 mg tablet Take 25 mg by mouth. 2019 insulin aspart U-100 (NovoLOG FlexPen) 100 unit/mL (3 mL) injection Inject 12 Units under the skin 3 (three) times a day with meals. 05/02/2023 Lantus Solostar U-100 Insulin 100 unit/mL (3 mL) injection Inject under the skin at bedtime. 04/18/2023 losartan (COZAAR) 100 mg tablet Take 1 tablet by mouth daily. 04/17/2021 metFORMIN (GLUCOPHAGE) 1,000 mg tablet Take 1,000 mg by mouth 2 (two) times a day. 10/03/2020 multivitamin capsule Take by mouth daily. 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 3 mL 11 09/02/2023 UNABLE TO FIND by other route. Blood-Glucose Meter (Accu-Chek Staci Plus Meter) [facility] 04/13/2022 UNABLE TO FIND by other route. Needle (Disp) 23 Gauge (Bd Regular Bevel [place]) 23 gauge x 3/4 needle 04/05/2023 documented as of this encounter Plan of Treatment Upcoming Encounters Date Type Department Care Team (Late st Contact Info) Description 04/29/2024 Hospital Encounter Outpatient Procedure Center in [address] [phone] Vadim Redmond M.D. [address] [place] [phone] 05/04/2024 4:00 PM FEATURES REPORTER Comprehensive Visit Department of Rehabilitation Services in [address] [phone] Giovanna Molina APRN, C.N.P., D.N.P. [address] [place] [phone] Jolly Henriquez P.T. [address] [place] [phone] 06/10/2024 Hospital Encounter Outpatient Procedure Center in [address] [phone] Vadim Redmond M.D. [address] [place] [phone] Scheduled Procedures Name Priority Associated Diagnoses Date/Ti ny ROBOTIC-ASSISTED KNEE TOTAL ARTHROPLASTY Primary Osteoarthritis Knee Left ARTHROPLASTY TOTAL REVERSE SHOULDER Pain Shoulder Right documented as of this encounter Procedures Procedure Name Priority Date/Time Associated Diagnosis Comments DX SHOULDER RIGHT 2+ VIEWS RAD - Routine (most inpatients and all outpatients) 11/19/2023 1:23 PM CDT Pain Shoulder Right documented in this encounter Results * DX Shoulder Right 2+ Views (11/19/2023 [...] glenohumeraldegenerative change. Giovanna Molina APRN, C.N.P., D.N.P. IMG TESFAYE GNOSTIC IMAGING PROCEDURES documented in this encounter Visit Diagnoses Diagnosis Pain Shoulder Right Primary Osteoarthritis Knee Left- Primary Pain Shoulder Right- Primary documented in this encounter Care Teams Senior Enterprise Architect Relationship Specialty Start Date End Date Elsewhere, Pcp PCP - General 10/13/18 documented as of this encounter
--- OUTSIDE RECORDS SUMMARY | 2023-12-28 09:25 | XMS_ITS | Encounter Summary ---
Author Organization [facility] Address [address] [place] [address] Care Team Providers Care Clerk Cashier Name Role Phone Elsewhere, Pcp Primary Care Provider Unavailabl e Reason for Referral * Outpatient (Routine) - Closed Specialty Diagnoses / Procedures Referred By Contac t Referred To Contact Diagnoses Pain Knee Left Procedures DX Knee Left 3 Views Giovanna Molina APRN, C.N.P., D.N.P. [address] [place] [phone] [facility] Region Referral ID Status Reason Start Date Expiration Date Visits Re quested Visits Authorized [id number] Closed 11/19/2023 11/18/2024 1 1 Reason for Visit * Outpatient (Routine) - Closed Specialty Diagnoses / Procedures Referred By Contac t Referred To Contact Diagnoses Pain Knee Left Procedures DX Knee Left 3 Views Giovanna Molina APRN, C.N.P., D.N.P. [address] [place] [phone] [facility] Region Referral ID Status Reason Start Date Expiration Date Visits Re quested Visits Authorized [id number] Closed 11/19/2023 11/18/2024 1 1 Encounter Details Date Type Department Care Team (Latest Contact Info) Description 11/19/2023 1:03 PM CDT - 11/19/2023 11:59 PM CDT Hospital Encounter Department of Radiology in [address] [place] [phone] Giovanna Molina APRN, C.N.P., D.N.P. [address] [facility] [place] [phone] Pain Knee Left Discharge Disposition: Home or Self Care Social History Tobacco Use Types Packs/Day Years Used Date Smoking Tobacco: Never Passive Smoke Exposure: Never Smokeless Tobacco: Never [facility] Utilities Answer Date Recorded In the past [...] your living situation today? I have a [facility] place to live 11/15/2023 Sex and Gender [...] (HYGROTON) 25 mg tablet 05/19/2021 Dexcom G6 Forensic Social Worker See Admin Instructions. 02/20/2023 Dexcom G6 Sensor [...] route. Blood-Glucose Meter (Accu-Chek Staci Plus Meter) [facility] [place] 04/13/2022 UNABLE TO FIND by other route. Needle (Disp) 23 Gauge (Bd Regular Bevel [place]) 23 gauge x 3/4 needle 04/05/2023 documented as of this encounter Plan of Treatment Upcoming Encounters Date Type Department Care Team (Late st Contact Info) Description 04/29/2024 Hospital Encounter Outpatient Procedure Center in [address] [phone] Vadim Redmond M.D. [address] [place] [phone] 05/04/2024 4:00 PM ACCOUNT RECEIVABLE CLERK Comprehensive Visit Department of Rehabilitation Services in [address] [phone] Giovanna Molina APRN, C.N.P., D.N.P. [address] [place] [phone] Jolly Henriquez, P.T. [address] [place] [phone] 06/10/2024 Hospital Encounter Outpatient Procedure Center in [address] [phone] Vadim Redmond M.D. [address] [place] [phone] Scheduled Procedures Name Priority Associated Diagnoses Date/Ti hi ROBOTIC-ASSISTED KNEE TOTAL ARTHROPLASTY Primary Osteoarthritis Knee Left ARTHROPLASTY TOTAL REVERSE SHOULDER Pain Shoulder Right documented as of this encounter Procedures Procedure Name Priority Date/Time Associated Diagnosis Comments DX KNEE LEFT 3 VIEWS RAD - Routine (most inpatients and all outpatients) 11/19/2023 1:24 PM CDT Pain Knee Left documented in this encounter Results * DX [...] knee joint effusion. Alignment normal. Noacute fracture. Ernie Ramsey APRN.N.P., D.N.P. IMG TESFAYE GNOSTIC IMAGING PROCEDURES documented in this encounter Visit Diagnoses Diagnosis Pain Knee Left Primary Osteoarthritis Knee Left- Primary Pain Shoulder Right- Primary documented in this encounter Care Teams Clerk Cashier Relationship Specialty Start Date End Date Elsewhere, Pcp PCP - General 10/13/18 documented as of this encounter
--- OUTSIDE RECORDS SUMMARY | 2023-12-28 09:25 | XMS_ITS | Encounter Summary ---
Author Organization [facility] Address [address] [place] [address] Care Team Providers Care Patch Setter Name Role Phone Elsewhere, Pcp Primary Care Provider Unavailabl e Reason for Visit * Reason Onset Date Comments Surgical Listing 11/19/2023 Encounter Details Date Type Department Care Team (Latest Contact Info) Description 11/19/2023 Clinical Communication Department of Orthopedic Surgery in [place], [place] [address] [place] [phone] Vadim Redmond M.D. [address] [place] [phone] Surgical Listing Social History Tobacco Use Types Packs/Day Years Used Date Smoking Tobacco: Never Passive Smoke Exposure: Never Smokeless Tobacco: Never [facility] Utilities Answer Date Recorded In the past 12 months has e electric, gas, oil, or water company [...] your living situation today? I have a [facility] place to live 11/15/2023 Sex and Gender Information Value Date Recorded Sex Assigned at Male 11/15/2023 10:21 AM CDT Gender Identity Male 11/15/2023 10:21 AM CDT Sexual Orientation Straight 11/15/2023 10 :21 AM CDT documented as of this encounter Miscellaneous Notes * Telephone Encounter - Jana Hidalgo RJuan CN. - 11/19/2023 2:00 PM CDT Scheduled LEFT TKA daniela on 04/29/2023 to be performed by Dr. Redmond. And Scheduled Right reverse TSA on 06/10/2023 to be preformed by Dr. Redmond. BMI Readings from Last 1 Encounters: 05/14/23 37.79 kg/m?? If BMI 55-60, contact Anesthesia as needs to schedule visit for evaluation. If BMI greater than 60,consult with provider. documented in this encounter Plan of Treatment Upcoming Encounters Date Type Department Care Team (Late st Contact Info) Description 04/29/2024 Hospital Encounter Outpatient Procedure Center in [place], [place] [address] [place] [phone] Vadim Redmond M.D. [address] [place] [phone] 05/04/2024 4:00 PM [employer] AND SALES ASSISTANT Comprehensive Visit Department of Rehabilitation Services in [address] [phone] Giovanna Molina APRN, LilyNShanice., D.N.P. [address] [place] [phone] Jolly Henriquez P.T. [address] [place] [phone] 06/10/2024 Hospital Encounter Outpatient Procedure Center in [place], [place] [address] [place] [phone] Vadim Redmond M.D. [address] [place] [phone] Scheduled Procedures Name Priority Associated Diagnoses Date/Ti ne ROBOTIC-ASSISTED KNEE TOTAL ARTHROPLASTY Primary Osteoarthritis Knee Left ARTHROPLASTY TOTAL REVERSE SHOULDER Pain Shoulder Right documented as of this encounter Visit Diagnoses Not on filedocumented in this encounter Care Teams Patch Setter Relationship Specialty Start Date End Date Elsewhere, Pcp PCP - General 10/13/18 documented as of this encounter
--- OUTSIDE RECORDS SUMMARY | 2023-12-28 09:25 | XMS_ITS | Clinical Summary ---
Author Organization [facility] Address [place], [place] [address] Care Team Providers Care Shorthand Teacher Name Role Phone Klaudia Vo NP Primary Care Provider Nhung vailable Social History Tobacco Use Types Packs/Day Years Used Date Smoking Tobacco: Never Assessed Sex and Gender Information Value Date Recorded Sex Assigned at Not on file Gender Identity Not on file Sexual Orientation Not on file Plan of Treatment Health Maintenance Due Date Last Done Comments Tdap 09/01/1975 Depression screening for age 12+ 1976 HIV for age 15-65 09/01/1979 BMI (ht and wt on same day) for age 18+ 1982 Hepatitis C screening for ag e 18-79 1982 Tetanus booster 1984 Colonoscopy through age 75 2009 Lipids for age 45-75 2009 Zoster (shingles) series for age 50+ (1 of 2) 2014 COVID-19 vaccine series ( season) 2023 Influenza for age 50-64 12/15/2023 Pneumococcal series for age 6-64 Aged Out No longer eligible based on patient's age to complete this topic Care Teams Shorthand Teacher Relationship Specialty Start Date End Date Klaudia Vo, [employer] [address], [place] [address] PCP - General Emergency Medicine 07/07/21
== END 2023-12-24 08:11 | disposition home or self-care (01) ==
LOC: NFLDREF 12-28 09:22
PROVIDERS: PCP Nurse Practitioner Family; Referring Provider Nurse Practitioner Family; Visit Provider Nurse Practitioner Family
DX: E11.65 Type 2 diabetes mellitus with hyperglycemia (principal); R10.9 Unspecified abdominal pain; E78.5 Hyperlipidemia, unspecified; I10 Essential (primary) hypertension; M19.90 Unspecified osteoarthritis, unspecified site; Z13.29 Encounter for screening for other suspected endocrine disorder; Z13.21 Encounter for screening for nutritional disorder; Z79.84 Long term (current) use of oral hypoglycemic drugs; Z79.4 Long term (current) use of insulin
CPT/HCPCS: 80053; 80061; 81001; 82043; 82570; 82607; 84443

== ENCOUNTER 2024-04-13 12:38 | Outpatient (CLI) | payer OTHER, SELFPAY | END 2024-04-13 12:39 | disposition home or self-care (01) | PROVIDERS: PCP Nurse Practitioner Family; Visit Provider Nurse Practitioner Family | DX: E11.9 Type 2 diabetes mellitus without complications (principal); Z79.899 Other long term (current) drug therapy | CPT/HCPCS: 80053; 84550; 85025 ==

== ENCOUNTER 2024-05-21 13:08 | Outpatient (CLI) | payer MEDICAID, SELFPAY | END 2024-05-21 13:09 | disposition home or self-care (01) | PROVIDERS: PCP Nurse Practitioner Family; Visit Provider Nurse Practitioner Family | DX: I10 Essential (primary) hypertension (principal); Z12.5 Encounter for screening for malignant neoplasm of prostate | CPT/HCPCS: 80053; 85025; G0103 ==

== ENCOUNTER 2024-07-17 09:10 | Outpatient (CLI) | payer MEDICAID, SELFPAY | END 2024-07-17 09:11 | disposition home or self-care (01) | LOC: KYNREF 15:24 | PROVIDERS: PCP Nurse Practitioner Family; Referring Provider Nurse Practitioner Family; Visit Provider Nurse Practitioner Family | DX: R35.0 Frequency of micturition (principal) | CPT/HCPCS: 81001; 87086 ==

== ENCOUNTER 2024-07-24 12:58 | Outpatient (CLI) | payer MEDICAID, SELFPAY ==
--- NOTE | 2024-07-24 13:00 | CRLHL7_ITS ---
For Patients: As a result of the Century Cures Act, medical imaging exams and procedure reports are released immediately into your electronic medical record. You may view this report before your referring provider. If you have questions, please contact your health care provider. INDICATION: Solitary pulmonary nodule TECHNIQUE: CT chest without contrast. COMPARISON: April 2023. FINDINGS: Lungs and Airways: Stable 6 millimeter left lower lobe indeterminate pulmonary nodule. A few additional stable scattered sub 6 millimeter indeterminate pulmonary nodules. A few additional 1-3 millimeter indeterminate pulmonary nodules that were not within the field of view on prior exam. No mass or consolidation. No endoluminal lesion. Heart and Mediastinum: The visualized portions of the thyroid are normal. No axillary or supraclavicular lymphadenopathy. No mediastinal, hilar or retrocrural lymphadenopathy. Normal heart size. Normal caliber aorta. Atherosclerotic and coronary artery calcifications. Trace pericardial fluid. Pleura: The pleural spaces are normal. Abdomen: The visualized upper abdominal organs are unremarkable. Bones and soft tissues: Right shoulder arthroplasty. Thoracic spondylosis. IMPRESSION: 1. Stable 6 millimeter left lower lobe indeterminate pulmonary nodule. A few additional stable scattered sub 6 millimeter indeterminate pulmonary nodules. A few additional 1-3 millimeter indeterminate pulmonary nodules that were not within the field of view on prior exam. Recommend [address] to document stability and establish benign origin over 2 year surveillance. 2. No mass or consolidation. Please note that all CT scans at this facility use dose modulation, iterative reconstruction, and/or weight-based dosing when appropriate to reduce radiation dose to as low as reasonably achievable. Dictated by Jonathon Adair MD @ 07/26/2024 10:22:43 AM (Electronically Signed)
== END 2024-07-24 12:59 | disposition home or self-care (01) ==
LOC: CT 12:59
PROVIDERS: PCP Nurse Practitioner Family; Visit Provider Nurse Practitioner Family
DX: R91.1 Solitary pulmonary nodule (principal); R91.8 Other nonspecific abnormal finding of lung field
CPT/HCPCS: 71250

== ENCOUNTER 2025-03-09 09:45 | Outpatient (CLI) | payer MEDICAID, SELFPAY | END 2025-03-09 09:46 | disposition home or self-care (01) | LOC: NFLDREF 03-14 04:37 | PROVIDERS: PCP Nurse Practitioner Family; Referring Provider Nurse Practitioner Family; Visit Provider Nurse Practitioner Family | DX: E11.9 Type 2 diabetes mellitus without complications (principal) | CPT/HCPCS: 80053; 80061; 82043; 82570; 82607; 84443 ==